=== PATIENT | male | born 1965 | race Caucasian/White ===

== ENCOUNTER 2023-01-13 07:13 | Outpatient (REF) | payer OTHER, SELFPAY ==
[2023-01-13 07:30] LABS: MANUAL DIFF FLAG NO
[2023-01-13 08:58] LABS: Basophils Percent Auto 0.6 % (0-2); Eosinophils Absolute Auto 0.4 X10*3/uL (0.0-0.4); Eosinophils Percent Auto 6.3 % (0-4); Hematocrit 43.3 % (42.0-52.0); Imm Gran Abs Auto 0.04 X10*3/uL (0.00-0.03); Imm Gran Pct Auto 0.6 % (0.0-0.4); Lymphocytes Absolute Auto 1.4 X10*3/uL (1.2-4.9); Lymphocytes Percent Auto 22.7 % (20-40); Mean Corpuscular HGB Conc 34.6 g/dl (31.0-36.0); Mean Corpuscular Hemoglobin 30.1 pg (27.0-33.0); Mean Corpuscular Volume 86.8 fL (80.0-98.0); Mean Platelet Volume 8.8 fL (9.4-12.4); Monocytes Absolute Auto 0.4 X10*3/uL (0.1-1.2); Monocytes Percent Auto 6.6 % (2-11); Neutrophils Percent Auto 63.2 % (45-73); Platelet Count 274 X10*3/uL (160-400); Red Blood Count 4.99 X10*6/uL (4.60-5.80); Red Cell Distribution Width 12.3 % (11.0-16.0); White Blood Count 6.3 X10*3/uL (4.8-10.8)
[2023-01-13 09:44] LABS: Alanine Aminotransferase 16 U/L (0-40); Albumin Level 4.1 g/dL (3.5-5.0); Alkaline Phosphatase 70 U/L (39-117); Anion Gap 11 (12-20); Aspartate Amino Transferase 17 U/L (5-37); Bilirubin Total 0.5 mg/dL (0.0-1.0); Blood Urea Nitrogen 15 mg/dL (9-16); Calcium 9.5 mg/dL (8.4-10.2); Carbon Dioxide 23 mmol/L (22-29); Chloride 111 mmol/L (96-108); Cholesterol 247 mg/dL; Estimated Glomerular Filt Rate > 60; Glucose Fasting 90 mg/dL (60-99); HDL Cholesterol 35 mg/dL; LDL Cholesterol Calculated 176 mg/dl; Potassium 4.4 mmol/L (3.3-5.1); Prostate Specific Antigen 0.98 ng/mL (<0.05-4.0); Sodium 141 mmol/L (135-145); Total Protein 6.7 g/dL (6.5-8.0); Triglycerides 182 mg/dL
== END 2023-01-13 07:14 | disposition home or self-care (01) ==
LOC: HO.LAB 07:13
PROVIDERS: PCP Internal Medicine; Visit Provider Internal Medicine
DX: Z00.00 Encounter for general adult medical examination without abnormal findings (principal); Z12.5 Encounter for screening for malignant neoplasm of prostate; E66.3 Overweight; R63.5 Abnormal weight gain; M19.90 Unspecified osteoarthritis, unspecified site
CPT/HCPCS: 36415; 80053; 80061; 84153; 85025

== ENCOUNTER 2023-03-23 14:49 | Outpatient (REF) | payer OTHER, SELFPAY ==
--- NOTE | ~2023-03-23 | XR_ITS ---
EXAMINATION: XR LUMBOSACRAL SPINE CLINICAL INFORMATION: Back pain. COMPARISON: None available. TECHNIQUE: Three views of the lumbosacral spine. FINDINGS: No evidence of acute compression deformity or subluxation. Moderate intervertebral disc height loss and facet arthropathy at L4-L5 and L5-S1 leading to some degree of neural foraminal encroachment and central canal stenosis. SI joints are symmetric. No significant paraspinal soft tissue abnormality. XR/XR lumbar spine 2-3V IMPRESSION: 1. No acute compression deformity or subluxation. 2. Moderate lumbar spondylosis at L4-L5 and L5-S1. Further evaluation with an MRI of the lumbar spine could be obtained as clinically indicated.
== END 2023-03-23 14:50 | disposition home or self-care (01) ==
LOC: HO.XRAY 14:49
PROVIDERS: PCP Internal Medicine; Visit Provider Internal Medicine
DX: M54.9 Dorsalgia, unspecified (principal); M79.671 Pain in right foot
CPT/HCPCS: 72100

== ENCOUNTER 2023-04-07 06:57 | Outpatient (REF) | payer OTHER, SELFPAY ==
[2023-04-07 08:53] LABS: Alanine Aminotransferase 18 U/L (0-40); Aspartate Amino Transferase 16 U/L (5-37); Cholesterol 179 mg/dL; HDL Cholesterol 40 mg/dL; LDL Cholesterol Calculated 110 mg/dl; Triglycerides 146 mg/dL
== END 2023-04-07 06:58 | disposition home or self-care (01) ==
LOC: HO.LAB 06:57
PROVIDERS: PCP Internal Medicine; Visit Provider Internal Medicine
DX: E78.00 Pure hypercholesterolemia, unspecified (principal)
CPT/HCPCS: 36415; 80061; 82550; 84450; 84460

== ENCOUNTER 2023-06-22 11:29 | Day surgery (SDC) | payer OTHER, SELFPAY ==
--- NOTE | 2023-06-21 10:54 | HO.ANESPROP2 ---
HPI - Anesthesia Eval Consult details Narrative: 58yo M for Colonoscopy PMFSH Past Medical History Medical History Scoliosis Osteoarthritis HLD (hyperlipidemia) Surgical History Surgical History H/O knee surgery H/O colonoscopy Social History Social History Patient Tobacco Use Status: Never used Tobacco Use of substances other than those prescribed or required for medical reasons: No Are you DNR?: No Advance Directives: No Advance Directives Information Provided: Yes Meds Allergies Allergy/AdvReac Type Severity Reaction Status Date / Time No Known Allergies Allergy Unverified 05/20/20 14:44 Home Medications Medication Instructions Recorded Confirmed Last Taken Type atorvastatin 10 mg tablet 10 mg PO DAILY 06/21/23 06/22/23 06/20/23 History celecoxib 200 mg capsule 200 mg PO DAILY 06/21/23 06/22/23 06/17/23 History tramadol 50 mg tablet 50 - 100 mg PO Q6H PRN pain 06/21/23 06/22/23 06/22/23 08:00 History Exam Exam Date and Time: June 21, 2023 105 Assessment and Plan Assessment Anesthesia Assessment: Chart Reviewed
[2023-06-22 11:43] VITALS: BMI 40.7
[2023-06-22] MEDS: Lactated Ringers 1,000 ML 100 ML IVCONT (11:59)
[2023-06-22 12:10] VITALS: BP 109/78; PULSE 72; RESP 16; TEMP 36.3; O2SAT 96
--- NOTE | 2023-06-22 12:42 | MHC.SHP ---
Pre-Procedural Eval Section A Date of Service: 06/22/23 The patient is an INPATIENT: No Changes since office visit: No Cold of Flu in the past 2 weeks, No New Medical Problems, No Changes in Medication and No Patient answered all questions The History & Physical has been completed within 30 days and I have reviewed it.: Yes Section B Chief Complaint: screening Allergies: Allergies Allergy/AdvReac Type Severity Reaction Status Date / Time No Known Allergies Allergy Unverified 05/20/20 14:44 Plan I have reviewed the history and physical and performed a pertinent physical examination on my patient. No changes have occurred unless specified. Time Spent With Patient Time: Total time managing care of this patient today ____ minutes.
--- NOTE | 2023-06-22 13:18 | P.BOP_ITS ---
Brief Operative Note Date of Service: 06/22/23 Pre-op diagnosis: screening Post-op diagnosis: same Procedure: colonoscopy Surgeon: Dell Ervin MD Was an Social Sciences Lecturer used for this Procedure?: No Estimated blood loss (mL): 2 Pathology: other Condition: stable Disposition: PACU
--- NOTE | 2023-06-22 13:22 | P.CONAN_ITS ---
[facility] Past Medical History Medical History Scoliosis Osteoarthritis HLD (hyperlipidemia) Functional capacity: independent ambulation Family History Family history of problems with anesthesia: No Surgical History Surgical History H/O knee surgery H/O colonoscopy History of Problems with Anesthesia: No Social History Social History Patient Tobacco Use Status: Never used Tobacco Use of substances other than those prescribed or required for medical reasons: No Are you DNR?: No Advance Directives: No Advance Directives Information Provided: Yes Meds Allergies Allergy/AdvReac Type Severity Reaction Status Date / Time No Known Allergies Allergy Unverified 05/20/20 14:44 Active Medications: Current Medications Lactated Ringer's (Lr) 1,000 mls @ 100 mls/hr IVCONT .Q10H HEATHER Last Admin: 06/22/23 11:59 Dose: 100 mls/hr Home Medications Medication Instructions Recorded Confirmed Last Taken Type atorvastatin 10 mg tablet 10 mg PO DAILY 06/21/23 06/22/23 06/20/23 History celecoxib 200 mg capsule 200 mg PO DAILY 06/21/23 06/22/23 06/17/23 History tramadol 50 mg tablet 50 - 100 mg PO Q6H PRN pain 06/21/23 06/22/23 06/22/23 08:00 History Exam Exam Date and Time: June 22, 2023 1322 Height,Weight and Vital Signs: Height 5 ft 7 in Weight 117.934 kg Last Vital Signs Temp 97.3 F 06/22/23 12:10 Pulse 72 06/22/23 12:10 Resp 16 06/22/23 12:10 BP 109/78 06/22/23 12:10 Pulse Ox 96 06/22/23 12:10 O2 Del Method Room Air 06/22/23 12:10 Airway Mallampati Class: III TM Dist: >3cm Neck ROM: Full Heart: RRR Lungs: CTA Assessment and Plan Assessment Anesthesia Assessment: Anesthesia Plan Discussed Final Anesthetic Review Family History of Problems with Anesthesia: No History of Problems with Anesthesia: No ASA Class: III Final Preanesthetic Review: Meds/Allgs Chart Reviewed, Consent Obtained/Reviewed and Anes Risks/Benef Reviewed Patient Risk: Low Procedure Risk: Low Anesthetic Plan Anesthetic Plan: MAC: Disposition: Standard PACU
[2023-06-22 13:26] VITALS: BP 117/68; PULSE 67; RESP 16; TEMP 36.1; O2SAT 93
--- NOTE | 2023-06-22 13:28 | HO.POSTANES ---
Post Anesthesia Evaluation Post Anesthesia Evaluation Date of Service: 06/22/23 Vital Signs: Vital Signs Temp Pulse Resp BP Pulse Ox O2 Del Method 06/22/23 13:26 97 F 67 16 117/68 93 Room Air 06/22/23 12:10 97.3 F 72 16 109/78 96 Room Air Anesthesia: Monitored Pain Control: Satisfactory Nausea/Vomiting: None Hydration: Adequate Anesthesia-Related Issues: No Anes. Related Issues
--- NOTE | 2023-06-22 13:36 | OP_ITS ---
DATE OF SERVICE: 06/22/2023 SURGEON: Dell Evrin MD INDICATIONS: Colon cancer screening and family history of colon cancer. PREOPERATIVE DIAGNOSIS: POSTOPERATIVE DIAGNOSIS: PROCEDURE PERFORMED: Colonoscopy to the terminal ileum with biopsy. ESTIMATED BLOOD LOSS: COMPLICATIONS: ANESTHESIA: Monitored anesthesia care. ASSISTANTS: SPECIMENS: DESCRIPTION OF PROCEDURE: A history and physical was performed. The risks and benefits of the procedure were explained to the patient. Informed consent was obtained. The patient was placed in the left lateral decubitus position. A digital rectal exam was performed and was found to be normal. The Olympus pediatric video colonoscope was introduced into the rectum and advanced to the cecum. The cecum was identified by transillumination, palpation, and identification of ileocecal valve. Examination was performed. The scope was removed. He tolerated the procedure well and was returned to the recovery area in stable condition. FINDINGS: The terminal ileum was examined and appeared normal. The visualized colonic mucosa was normal. The quality of the prep was good. Two polyps were identified and removed with a biopsy forceps, both measured less than 5 mm, and were located in the cecum, and at 55 cm. No other polyps were identified. Retroflexed examination showed moderate-sized internal hemorrhoids. The quality of the prep was good. IMPRESSION: Colon polyps. RECOMMENDATION: Follow up the biopsy results. MD ДМИТРИЙ Mcknight/SALMA / [id number]
[2023-06-22 13:41] VITALS: BP 134/85; PULSE 69; RESP 18; TEMP 36.2; O2SAT 95
== END 2023-06-22 14:13 | disposition home or self-care (01) ==
PROVIDERS: PCP Internal Medicine; Visit Provider Internal Medicine Gastroenterology
PROC: 0DJD8ZZ Inspection of Lower Intestinal Tract, Via Natural or Artificial Opening Endoscopic (ICD-10-PCS; CPT 45378; principal; 2023-06-22 12:30)
DX: Z12.11 Encounter for screening for malignant neoplasm of colon (principal); Z80.0 Family history of malignant neoplasm of digestive organs; D12.0 Benign neoplasm of cecum; K63.5 Polyp of colon; K64.8 Other hemorrhoids; E78.5 Hyperlipidemia, unspecified; M19.90 Unspecified osteoarthritis, unspecified site; M41.9 Scoliosis, unspecified; Z79.899 Other long term (current) drug therapy; Z79.1 Long term (current) use of non-steroidal anti-inflammatories (NSAID); Z98.890 Other specified postprocedural states
CPT/HCPCS: 45380; 88305

== ENCOUNTER 2023-12-14 12:18 | Outpatient (REF) | payer OTHER, SELFPAY ==
--- NOTE | ~2023-12-14 | XR_ITS ---
EXAMINATION: XR CHEST CLINICAL INFORMATION: Right shoulder and chest wall pain COMPARISON: None available. TECHNIQUE: 2 views of the chest were obtained. FINDINGS: No significant abnormality is noted involving the heart, lungs, mediastinum, bony thorax or soft tissues. XR/XR chest 2V IMPRESSION: Unremarkable examination.
[2023-12-14 12:37] LABS: MANUAL DIFF FLAG NO
[2023-12-14 12:50] LABS: Basophils Absolute Auto 0.1 X10*3/uL (0.0-0.2); Basophils Percent Auto 0.8 % (0-2); Eosinophils Absolute Auto 0.6 X10*3/uL (0.0-0.4); Eosinophils Percent Auto 7.6 % (0-4); Hematocrit 42.2 % (42.0-52.0); Hemoglobin 14.8 g/dl (14.0-18.0); Imm Gran Abs Auto 0.05 X10*3/uL (0.00-0.03); Imm Gran Pct Auto 0.7 % (0.0-0.4); Lymphocytes Absolute Auto 1.3 X10*3/uL (1.2-4.9); Lymphocytes Percent Auto 17.7 % (20-40); Mean Corpuscular HGB Conc 35.1 g/dl (31.0-36.0); Mean Corpuscular Hemoglobin 29.6 pg (27.0-33.0); Mean Corpuscular Volume 84.4 fL (80.0-98.0); Mean Platelet Volume 8.2 fL (9.4-12.4); Monocytes Absolute Auto 0.5 X10*3/uL (0.1-1.2); Monocytes Percent Auto 6.5 % (2-11); Neutrophils Absolute Auto 4.8 x10*3/uL (2.0-8.3); Neutrophils Percent Auto 66.7 % (45-73); Platelet Count 285 X10*3/uL (160-400); Red Cell Distribution Width 12.6 % (11.0-16.0); White Blood Count 7.2 X10*3/uL (4.8-10.8)
[2023-12-14 13:05] LABS: D Dimer High Sensitivity 368 NG/ML
[2023-12-14 13:38] LABS: Alanine Aminotransferase 14 U/L (0-40); Albumin Level 4.3 g/dL (3.5-5.0); Alkaline Phosphatase 87 U/L (39-117); Anion Gap 13 (12-20); Aspartate Amino Transferase 13 U/L (5-37); Bilirubin Total 0.6 mg/dL (0.0-1.0); Blood Urea Nitrogen 10 mg/dL (9-16); C Reactive Protein 0.51 mg/dL (< or = 0.50); Calcium 9.6 mg/dL (8.4-10.2); Carbon Dioxide 25 mmol/L (22-29); Chloride 106 mmol/L (96-108); Estimated Glomerular Filt Rate > 60; Glucose Random 98 mg/dL (60-115); Potassium 4.2 mmol/L (3.3-5.1); Sodium 140 mmol/L (135-145); Total Protein 7.5 g/dL (6.5-8.0)
== END 2023-12-14 12:19 | disposition home or self-care (01) ==
LOC: HO.LAB 12:18
PROVIDERS: PCP Internal Medicine; Visit Provider Internal Medicine
DX: R07.9 Chest pain, unspecified (principal); M25.511 Pain in right shoulder
CPT/HCPCS: 36415; 71046; 80053; 82550; 85025; 85379; 86140

== ENCOUNTER 2023-12-15 17:57 | Emergency (ER) | payer OTHER, SELFPAY ==
--- NOTE | ~2023-12-15 | CT_ITS ---
EXAMINATION: CT ANGIOGRAM OF THE CHEST WITH AND WITHOUT CONTRAST (CT PULMONARY ANGIOGRAM FOR PE) CLINICAL INFORMATION: Reason for Exam elevated d-dimer rule out PE COMPARISON: Chest x-ray December 14, 2023 TECHNIQUE: Prior to contrast administration, noncontrast localization images were obtained. Subsequently, multidetector volumetric imaging was performed from the thoracic inlet to below the diaphragms following the administration of 65 mL Omnipaque 350 intravenous contrast. No contrast reaction reported Sagittal, coronal, and MIP oblique sagittal reformatted images were obtained on the CT workstation, uploaded to PACS, and reviewed. This CT examination was performed using dose optimization techniques as appropriate, variously including the following: *Automated exposure control *Adjustment of mA and/or kV according to patient size (this includes techniques or standardized protocols for targeted exams where dose is matched to indication/reason for exam; i.e. extremities or head) *Use of iterative reconstruction technique Total exam dose-length product 457 mGy-cm FINDINGS: QUALITY OF STUDY/CONTRAST BOLUS: Satisfactory. PULMONARY ARTERIES: No pulmonary emboli. THORACIC AORTA: No aneurysm. LUNG: No focal consolidation, nodules or masses. PLEURA: No pleural effusion or pneumothorax. MEDIASTINUM: Normal heart size. No pericardial effusion. No hilar or mediastinal lymphadenopathy. No evidence of septal bowing or right heart strain. CORONARY ARTERY CALCIFICATION: None visualized on this study. CHEST WALL/AXILLA: No axillary or internal mammary lymphadenopathy. OSSEOUS STRUCTURES: No acute or suspicious osseous abnormality. UPPER ABDOMEN: Unremarkable. No reflux of contrast into the hepatic veins to suggest elevated right heart pressures. CT/CT angio chest PE protocol IMPRESSION: Normal CT of chest. No evidence of pulmonary embolism. VTE: negative.
[2023-12-15 18:44] VITALS: BP 137/95; PULSE 90; RESP 16; TEMP 36.6; O2SAT 96; BMI 38.4
[2023-12-15 19:12] LABS: MANUAL DIFF FLAG NO
[2023-12-15 19:14] LABS: Basophils Absolute Auto 0.1 X10*3/uL (0.0-0.2); Basophils Percent Auto 0.6 % (0-2); Eosinophils Absolute Auto 0.2 X10*3/uL (0.0-0.4); Eosinophils Percent Auto 2.7 % (0-4); Hematocrit 40.6 % (42.0-52.0); Hemoglobin 14.2 g/dl (14.0-18.0); Imm Gran Abs Auto 0.02 X10*3/uL (0.00-0.03); Imm Gran Pct Auto 0.2 % (0.0-0.4); Lymphocytes Absolute Auto 1.8 X10*3/uL (1.2-4.9); Lymphocytes Percent Auto 22.3 % (20-40); Mean Corpuscular Hemoglobin 29.3 pg (27.0-33.0); Mean Corpuscular Volume 83.9 fL (80.0-98.0); Mean Platelet Volume 7.9 fL (9.4-12.4); Monocytes Absolute Auto 0.6 X10*3/uL (0.1-1.2); Monocytes Percent Auto 7.5 % (2-11); Neutrophils Absolute Auto 5.5 x10*3/uL (2.0-8.3); Neutrophils Percent Auto 66.7 % (45-73); Platelet Count 282 X10*3/uL (160-400); Red Blood Count 4.84 X10*6/uL (4.60-5.80); Red Cell Distribution Width 12.6 % (11.0-16.0); White Blood Count 8.3 X10*3/uL (4.8-10.8)
[2023-12-15 19:21] LABS: D Dimer High Sensitivity 362 NG/ML
[2023-12-15 19:38] LABS: Alanine Aminotransferase 15 U/L (0-40); Albumin Level 4.4 g/dL (3.5-5.0); Alkaline Phosphatase 89 U/L (39-117); Anion Gap 15 (12-20); Aspartate Amino Transferase 16 U/L (5-37); Bilirubin Direct 0.2 mg/dL (0.0-0.5); Bilirubin Total 0.5 mg/dL (0.0-1.0); Blood Urea Nitrogen 13 mg/dL (9-16); Calcium 9.9 mg/dL (8.4-10.2); Carbon Dioxide 26 mmol/L (22-29); Chloride 107 mmol/L (96-108); Creatinine Clr Calc Pharmacy 119.9; Estimated Glomerular Filt Rate > 60; Glucose Random 113 mg/dL (60-115); Potassium 3.7 mmol/L (3.3-5.1); Sodium 144 mmol/L (135-145); Total Protein 7.6 g/dL (6.5-8.0)
[2023-12-15 20:44] VITALS: BP 139/79; PULSE 71; RESP 18; TEMP 36.6; O2SAT 93
--- NOTE | 2023-12-15 20:46 | PC.NURSE ---
Pt ca&ox4, no signs of distress. Pt denies pain. Per pt sent to ED by pcp d/t elevated DDimer. Per pt had knee replacement on 07/09/23 and has since been having intermittent upper body pain. Plan of care ongoing.
--- NOTE | 2023-12-15 20:49 | PC.NURSE ---
at bedside. Pt changed into hospital attire. Vitals stable. Plan of care ongoing.
--- NOTE | 2023-12-15 22:23 | ECG_ITS ---
Test Reason : pain Blood Pressure : / mmHG Vent. Rate : 064 BPM Atrial Rate : 064 BPM P-R Int : 216 ms QRS Dur : 094 ms QT Int : 408 ms P-R-T Axes : 013 031 022 degrees QTc Int : 420 ms Sinus rhythm with 1st degree A-V block Otherwise normal ECG No previous ECGs available Referred By: Nadja Miramontes Electronically Signed By:Peter Wilcox
[2023-12-15 22:49] LABS: Troponin-I High Sensitivity 8.1 ng/L (<3.5-35.0)
[2023-12-15 22:50] LABS: B Type Natriuretic Peptide 10 pg/mL (<100)
--- NOTE | 2023-12-15 23:23 | PC.NURSE ---
IV access obtained. CT advised. Plan of care ongoing.
[2023-12-15] MEDS: iohexoL 350 MG/ML 100 ML INFUS..BTL 65 ML IV (23:41)
--- NOTE | 2023-12-16 00:03 | ED.RECABL ---
HPI - Recheck/Abnormal Lab/Rx General Chief Complaint: Recheck/Abnormal Lab/Rx Stated Complaint: elevated d-dimer levels, ref by PCP, clot? Time Seen by Provider: 12/15/23 22:03 Source: patient, family and old records reviewed Mode of arrival: ambulatory Limitations: no limitations History of Present Illness HPI narrative: 58 yo male with PMH of arthritis, HLD here with c/o seeing his doctor this week for R sided shoulder pain and pain in the sternoclavicular joint his doctor sent off an array of labs and sent off ddimer. The patient has no hx of blood clots and he denies risk factors for blood clots. He and his partner were called to come to the ED for further testing. He denies CP/dyspnea. MD complaint: abnormal lab Initial visit (ago): day(s) (1) Initial visit for: other (R SC joint pain) Returns today for: called because of abnormal lab/test Description of abnormal result: elevated ddimer Symptoms since prior visit: no new symptoms Context: called for abnormal lab result Associated symptoms: none Related Data Home Medications ?Medication ?Instructions ?Recorded ?Confirmed atorvastatin 10 mg tablet 10 mg PO DAILY 06/21/23 06/22/23 celecoxib 200 mg capsule 200 mg PO DAILY 06/21/23 06/22/23 tramadol 50 mg tablet 50 - 100 mg PO Q6H PRN pain 06/21/23 06/22/23 Allergies Allergy/AdvReac Type Severity Reaction Status Date / Time No Known Allergies Allergy Verified 12/15/23 18:47 Review of Systems Review of Systems: Constitutional : No Fever, No Chills ENT/Mouth : No Ear Pain, No Hoarseness, No sore throat Eyes: No Eye Pain, No Swelling, No Redness, No Foreign Body Cardiovascular : No Chest Pain, No SOB Respiratory : No Cough, No Dyspnea Gastrointestinal : No Nausea, No Vomiting, No Diarrhea, No abdominal Pain Genitourinary : No Dysuria, No Hematuria Musculoskeletal : positive joint pain, No Myalgias, No Joint Swelling Skin : No Skin lacerations, No rash Neuro : No Weakness, No Numbness, No Loss of Consciousness, No Dizziness, No Headache Psych : No Anxiety/Panic, No Depression Heme/Lymph: no easy bruising, no Lymphadenopathy Endocrine : No Polyuria, No Polydipsia All other systems reviewed and are negative [facility], [facility] Past Medical History Attestation statement: The following information was validated with the patient. Source: old records reviewed Medical History Scoliosis Osteoarthritis HLD (hyperlipidemia) Surgical History H/O knee surgery H/O colonoscopy Social History Social History Patient Tobacco Use Status: Never used Tobacco Smoked in Last 30 Days: No Use of substances other than those prescribed or required for medical reasons: No Advance Directives: No Advance Directives Information Provided: No Physical Exam Vital Signs: Vital Signs: Last Vital Signs Temp 97.8 F 12/15/23 20:44 Pulse 71 12/15/23 20:44 Resp 18 12/15/23 20:44 BP 139/79 12/15/23 20:44 Pulse Ox 93 12/15/23 20:44 O2 Del Method Room Air 12/15/23 20:44 BMI result Body Mass Index 38.4 Appearance: Alert. Oriented X3. No acute distress. Eyes: Pupils equal, round and reactive to light. ENT: Pharynx normal. Neck: Normal inspection. Neck supple. CVS: Normal heart rate and rhythm. Pulses normal. Chest: slight swelling noted at R sternoclavicular joint but no redness, rash, warmth and distal NV intact Respiratory: No respiratory distress. Breath sounds normal. Abdomen: Soft and nontender. Skin: Skin warm and dry. Normal skin color. Normal skin turgor. Extremities: No lower extremity edema. No calf ttp Neuro: Oriented X 3. No motor deficit. No sensory deficit. Course Course Course Narrative: signed out to Dr. Mendoza pending CTA Medications Administered Discontinued Medications Generic Name Dose Route Start Last Admin Trade Name Freq PRN Reason Stop Dose Admin Iohexol 65 ml 12/15/23 23:41 12/15/23 23:41 Iohexol 350 Mg/Ml 100 Ml Infus..Btl IV 12/15/23 23:42 65 ml ONCE ONE Administration Medical Decision Making Medical Decision Making MDM Narrative: 58 yo male with PMH of arthritis, HLD here with c/o R sternoclavicular pain and mild joint swelling no signs of infection he is not IVDA no systemic symptoms doubt infection at this time he was referred to ED for elevated ddimer without any symptoms clinically and told to get CTA. He is low risk but test is elevated. At this time imaging ordered. EKG. Overall not toxic appearing. Will refer back to PCP for further SC joint workup. Differential Diagnosis Differential Diagnoses: The differential diagnosis associated with the presentation includes arthralgia, unprovoked VTE, ddimer elevated at baseline Admission/Observation Consideration of admission/observation: Escalation of care including admission/observation considered Lab Data [facility] Lab Attestation statement: I reviewed the patient's lab results. 12/15/23 19:08 12/15/23 19:08 Labs: Lab Results 12/15/23 Range/Units 19:08 WBC 8.3 (4.8-10.8) X10*3/uL RBC 4.84 (4.60-5.80) X10*6/uL Hgb 14.2 (14.0-18.0) g/dl Hct 40.6 L (42.0-52.0) % MCV 83.9 (80.0-98.0) fL MCH 29.3 (27.0-33.0) pg MCHC 35.0 (31.0-36.0) g/dl RDW 12.6 (11.0-16.0) % Plt Count 282 (160-400) X10*3/uL MPV 7.9 L (9.4-12.4) fL Immature Gran % (Auto) 0.2 (0.0-0.4) % Neut % (Auto) 66.7 (45-73) % Lymph % (Auto) 22.3 (20-40) % [place] % (Auto) 7.5 (2-11) % Eos % (Auto) 2.7 (0-4) % Baso % (Auto) 0.6 (0-2) % Lymph # (Auto) 1.8 (1.2-4.9) X10*3/uL [place] # (Auto) 0.6 (0.1-1.2) X10*3/uL Eos # (Auto) 0.2 (0.0-0.4) X10*3/uL Baso # (Auto) 0.1 (0.0-0.2) X10*3/uL Abs Immat Gran (auto) 0.02 (0.00-0.03) X10*3/uL Absolute Neuts (auto) 5.5 (2.0-8.3) x10*3/uL Absolute Nucleated RBC 0.000 (0.0-0.012) X10*3/uL Nucleated RBC % (auto) 0.0 (0.0-0.2) /100WBC D-Dimer High Sensitivty 362 NG/ML Sodium 144 (135-145) mmol/L Potassium 3.7 (3.3-5.1) mmol/L Chloride 107 (96-108) mmol/L Carbon Dioxide 26 (22-29) mmol/L Anion Gap 15 (12-20) BUN 13 (9-16) mg/dL Creatinine 0.83 (0.5-1.4) mg/dL Estim Creat Clear Calc 119.9 Estimated GFR > 60 Random Glucose 113 (60-115) mg/dL Calcium 9.9 (8.4-10.2) mg/dL Total Bilirubin 0.5 (0.0-1.0) mg/dL Direct Bilirubin 0.2 (0.0-0.5) mg/dL AST 16 (5-37) U/L ALT 15 (0-40) U/L Alkaline Phosphatase 89 (39-117) U/L Troponin I High Sens 8.1 (<3.5-35.0) ng/L B-Natriuretic Peptide 10 (<100) pg/mL Total Protein 7.6 (6.5-8.0) g/dL Albumin 4.4 (3.5-5.0) g/dL Independent Interpretation I performed an independent interpretation of an: EKG and CT Scan (no saddle noted) Interpretation: Rate: 64 Rhythm: NSR with 1st degree AVB [place]: normal Normal P waves. Normal NATE. Normal QRS complex. ST T wave : normal no LETICIA qTC: 420 prior studies: no acute ischemia The study has been interpreted contemporaneously by me. . Radiology Impression Discussion of test interpretation with radiology: I have reviewed the radiologist's reading. Independent Historian Clinical information obtained from an independent historian. History obtained from or confirmed by: Spouse External Record Review External record reviewed: Office record and Prior outpatient labs Discharge Plan Discharge Clinical Impression: D-dimer, elevated, Arthritis of sternoclavicular joint Patient Disposition: Still a Patient Instructions: Arthralgia (ED) Additional Instructions: ddimer is a nonspecific test can be elevated for many reasons that do no have anything to do with clots. follow up with your doctor in regards to swelling and pain in the sternoclavicular joint these can be nonspecific inflammation and can get better or you may need MRI. return for any worsening symptoms or concerns. Prescriptions: No Action celecoxib 200 mg capsule 200 mg PO DAILY atorvastatin 10 mg tablet 10 mg PO DAILY tramadol 50 mg tablet 50 - 100 mg PO Q6H PRN (Reason: pain) Print Language: Marshallese
[2023-12-16 01:07] VITALS: BP 137/87; PULSE 66; RESP 19; TEMP 36.6; O2SAT 97
== END 2023-12-16 01:09 | disposition home or self-care (01) ==
PROVIDERS: Emergency Medicine; Physician Assistant Medical; Emergency Provider Internal Medicine; PCP Internal Medicine
DX: M19.011 Primary osteoarthritis, right shoulder (principal); I44.0 Atrioventricular block, first degree; M25.511 Pain in right shoulder; R79.89 Other specified abnormal findings of blood chemistry; R07.89 Other chest pain; R06.02 Shortness of breath; Z79.899 Other long term (current) drug therapy
CPT/HCPCS: 36415; 71275; 80048; 80076; 83880; 84484; 85025; 85379; 93005; 99284; Q9967

== ENCOUNTER → 2023-12-15 22:23 | Outpatient (BNV) | payer OTHER, SELFPAY | PROVIDERS: Emergency Provider Internal Medicine; PCP Internal Medicine; Visit Provider Internal Medicine Cardiovascular Disease | DX: R52 Pain, unspecified (principal) | CPT/HCPCS: 93010 ==

== ENCOUNTER → 2024-01-11 14:37 | Outpatient (REF) | payer OTHER, SELFPAY ==
--- NOTE | 2024-01-11 14:40 | CA_ITS ---
Transthoracic Echocardiogram Patient (Last, First, Middle): Eric Wynn W Gender: Male Date of : 1965 Age: 58 Procedure Date: 01/11/2024 Procedure Type: Transthoracic Echocardiogram Location: OP Height: 170. cm Weight: 122.47 kg BSA: 2.30 m2 Heart Rate: 69 bpm BP: 130 / 80 mmHg Parts Coordinator: RAMSES Referring MD: Alvarado Echevarria MD Symptoms: MURMUR, ? as Study Quality: Fair ECG Rhythm: Sinus Conclusions: - Normal left ventricular size and systolic function. There is mildly increased left ventricular wall thickness. The visually estimated ejection fraction is between 65-70%. - E/E prime ratio is between 8 and 15 consistent with indeterminate filling pressures. - Normal right ventricular cavity size and systolic function. - There is mild to moderate aortic valve stenosis. - There is mild pulmonic stenosis. Findings Left Ventricle Normal left ventricular size and systolic function. There is mildly increased left ventricular wall thickness. The visually estimated ejection fraction is between 65-70%. There is no evidence of regional wall motion abnormalities. Abnormal diastolic function is noted. Spectral Doppler is indicative of an impaired relaxation filling pattern. E/E prime ratio is between 8 and 15 consistent with indeterminate filling pressures. Right Ventricle Normal right ventricular cavity size and systolic function. Atria The left atrium is mildly dilated. The right atrium is normal in size. Aortic Valve There is a normal trileaflet aortic valve. There is mild calcification of the aortic valve. There is mild to moderate aortic valve stenosis. The peak aortic velocity is 2.87 m/s. The mean gradient is 19 mmHg. The aortic valve area is 1.68 cm2. There is trace (trivial) aortic valve regurgitation. Mitral Valve Normal mitral valve structure and function. There is no mitral valve regurgitation. There is no mitral valve stenosis. Pulmonic Valve The pulmonic valve was not well visualized. There is mild stenosis. Tricuspid Valve Normal tricuspid valve structure and function. There is no tricuspid valve regurgitation. Normal right atrial pressure. There is no evidence of pulmonary hypertension. Great Vessels There is mild dilatation of the ascending aorta measuring 3.60 cm. Venous The inferior vena cava is normal in size and collapses greater than 50% with inspiration. Pericardium/Pleural There is no evidence of pericardial effusion. Prior Study Comparison Changes noted compared to prior study dated: 03/20/2018. mild to moderate , mild PS. Measurements 2D Linear Measurements IVSd: 1.21 0.6-0.9/0.6-1.0 cm LVIDd: 5.06 3.9-5.3/4.2-5.9 cm LVIDd Index: 2.20 2.4-3.2/2.2-3.1 cm/m2 LVIDs: 2.54 2.0-3.6 cm LVPWd: 1.13 0.7-1.1 cm LA Diam: 4.70 2.7-3.8/3.0-4.0 cm LAIDs Index: 2.04 1.5-2.3 cm/m2 LV Mass: 286.70 67-162/88-224 g LV Mass Index: 124.65 43-95/49-115 g/m2 LVOT Diam: 2.20 3.0+(-)1.3 cm 2D Systolic Function EF 4C: 55.60 >55% EF 2C: 66.50 >55% EF BiP: 60.40 >55% Mitral Valve MV Pk E: 1.00 MV PK A: 1.12 MV Decel Time: 185.00 E/A: 0.90 E'Lateral: 8.16 E'Medial: 7.29 E/E' Med: 13.60 E/E' Lat: 12.20 PHT: 54.00 MVA PHT: 4.07 Decel [place]: 5.39 Aortic Valve AoV Pk Steve: 2.87 AoV Mn Steve: 2.03 AoV VTI: 0.64 AoV Pk Grad: 33.00 Aov Mn Grad: 19.00 BRIAN Cont.VTI: 1.68 LVOT LVOT Pk Steve: 1.26 LVOT Mn Steve: 0.97 LVOT VTI: 0.28 LVOT Pk Grad: 6.00 LVOT Mn Grad: 4.00 LVOT Diam: 2.20 LVOT Area: 3.80 Diastolic Function MV Pk E: 1.00 MV Pk A: 1.12 E/A: 0.90 E'Medial: 7.29 E/E' Med: 13.60 E' Laterial: 8.16 E/E' Lat: 12.20 Right Ventricle TAPSE (mm): 24.40 TVS' Steve: 15.10 Tricuspid Valve TR Pk Steve: 1.74 TR Pk Grad: 12.00 RA Press: 3.00 RVSP: 15.00 Great Vessels Aorta Sinus of Valsalva: 3.10 2.0-3.5 cm Ao Asc: 3.60 2.1-3.4 cm Pulmonary Valve PV Pk Steve: 2.01 PV Min Steve: 1.13 Peak PV Grad: 16.00 PV Mn Grad: 7.00 Updated in Other Vendor System with Status of Final Peter Wilcox MD electronically signed on 01/13/2024 3:00:02 PM with status of Final
== END ==
LOC: HO.CARD 14:37
PROVIDERS: PCP Internal Medicine; Visit Provider Internal Medicine
DX: Z86.79 Personal history of other diseases of the circulatory system (principal)
CPT/HCPCS: 93306

== ENCOUNTER → 2024-01-11 14:40 | Outpatient (BNV) | payer OTHER, SELFPAY | PROVIDERS: PCP Internal Medicine; Visit Provider Internal Medicine Cardiovascular Disease | DX: R01.1 Cardiac murmur, unspecified (principal); I35.2 Nonrheumatic aortic (valve) stenosis with insufficiency | CPT/HCPCS: 93306 ==

== ENCOUNTER 2024-06-25 16:48 | Outpatient (REF) | payer OTHER, SELFPAY ==
[2024-06-25 17:03] LABS: MANUAL DIFF FLAG NO
[2024-06-25 17:06] LABS: Basophils Percent Auto 0.6 % (0-2); Eosinophils Absolute Auto 0.3 X10*3/uL (0.0-0.4); Eosinophils Percent Auto 5.3 % (0-4); Hematocrit 38.9 % (42.0-52.0); Hemoglobin 13.2 g/dl (14.0-18.0); Imm Gran Abs Auto 0.03 X10*3/uL (0.00-0.03); Imm Gran Pct Auto 0.5 % (0.0-0.4); Lymphocytes Absolute Auto 1.2 X10*3/uL (1.2-4.9); Lymphocytes Percent Auto 19.1 % (20-40); Mean Corpuscular HGB Conc 33.9 g/dl (31.0-36.0); Mean Corpuscular Hemoglobin 28.1 pg (27.0-33.0); Mean Corpuscular Volume 82.9 fL (80.0-98.0); Monocytes Absolute Auto 0.5 X10*3/uL (0.1-1.2); Monocytes Percent Auto 8.3 % (2-11); Neutrophils Absolute Auto 4.1 x10*3/uL (2.0-8.3); Neutrophils Percent Auto 66.2 % (45-73); Platelet Count 327 X10*3/uL (160-400); Red Blood Count 4.69 X10*6/uL (4.60-5.80); Red Cell Distribution Width 13.3 % (11.0-16.0); White Blood Count 6.2 X10*3/uL (4.8-10.8)
[2024-06-25 17:38] LABS: Alanine Aminotransferase 24 U/L (0-40); Albumin Level 4.1 g/dL (3.5-5.0); Alkaline Phosphatase 94 U/L (39-117); Anion Gap 11 (12-20); Aspartate Amino Transferase 21 U/L (5-37); Bilirubin Total 0.3 mg/dL (0.0-1.0); Blood Urea Nitrogen 16 mg/dL (9-16); C Reactive Protein 2.47 mg/dL (< or = 0.50); Calcium 9.4 mg/dL (8.4-10.2); Carbon Dioxide 25 mmol/L (22-29); Chloride 108 mmol/L (96-108); Estimated Glomerular Filt Rate > 60; Glucose Random 110 mg/dL (60-115); Potassium 4.3 mmol/L (3.3-5.1); Rheumatoid Factor < 13.0 IU/mL (<15.0); Sodium 140 mmol/L (135-145); Total Protein 7.3 g/dL (6.5-8.0); Uric Acid 4.9 mg/dL (3.4-7.0)
[2024-06-25 17:44] LABS: Erythrocyte Sedimentation Rate 37 MM/HR (0-15)
[2024-06-25 17:52] LABS: Free T4 (Free Thyroxine) 0.92 ng/dL (0.71-1.85); Thyroid Stimulating Hormone 1.69 uIU/mL (0.32-4.0)
[2024-06-25 17:58] LABS: Vitamin B12 228 pg/mL (200-900)
[2024-06-27 14:04] LABS: Anti Nuclear Antibody Screen NEGATIVE (NEGATIVE)
== END 2024-06-25 16:49 | disposition home or self-care (01) ==
LOC: HO.LAB 16:48
PROVIDERS: PCP Internal Medicine; Visit Provider Internal Medicine
DX: M25.50 Pain in unspecified joint (principal)
CPT/HCPCS: 36415; 80053; 82607; 84439; 84443; 84550; 85025; 85652; 86038; 86140; 86431

== ENCOUNTER 2024-07-30 10:39 | Outpatient (REF) | payer OTHER, SELFPAY ==
[2024-07-30 11:05] LABS: MANUAL DIFF FLAG NO
[2024-07-30 11:44] LABS: Basophils Percent Auto 0.6 % (0-2); Eosinophils Absolute Auto 0.3 X10*3/uL (0.0-0.4); Eosinophils Percent Auto 4.9 % (0-4); Hematocrit 41.2 % (42.0-52.0); Hemoglobin 13.7 g/dl (14.0-18.0); Imm Gran Abs Auto 0.04 X10*3/uL (0.00-0.03); Imm Gran Pct Auto 0.6 % (0.0-0.4); Lymphocytes Absolute Auto 1.2 X10*3/uL (1.2-4.9); Lymphocytes Percent Auto 17.6 % (20-40); Mean Corpuscular HGB Conc 33.3 g/dl (31.0-36.0); Mean Corpuscular Hemoglobin 28.5 pg (27.0-33.0); Mean Corpuscular Volume 85.7 fL (80.0-98.0); Mean Platelet Volume 8.1 fL (9.4-12.4); Monocytes Absolute Auto 0.7 X10*3/uL (0.1-1.2); Neutrophils Absolute Auto 4.3 x10*3/uL (2.0-8.3); Neutrophils Percent Auto 66.3 % (45-73); Platelet Count 340 X10*3/uL (160-400); Red Blood Count 4.81 X10*6/uL (4.60-5.80); Red Cell Distribution Width 12.7 % (11.0-16.0); White Blood Count 6.5 X10*3/uL (4.8-10.8)
[2024-07-30 12:18] LABS: Parathyroid Hormone Intact 80.9 pg/mL (8.7-77.1)
[2024-07-30 12:22] LABS: Alanine Aminotransferase 19 U/L (0-40); Albumin Level 3.9 g/dL (3.5-5.0); Alkaline Phosphatase 98 U/L (39-117); Anion Gap 13 (12-20); Aspartate Amino Transferase 19 U/L (5-37); Bilirubin Total 0.4 mg/dL (0.0-1.0); Blood Urea Nitrogen 9 mg/dL (9-16); C Reactive Protein 3.42 mg/dL (< or = 0.50); Calcium 9.5 mg/dL (8.4-10.2); Carbon Dioxide 27 mmol/L (22-29); Chloride 103 mmol/L (96-108); Estimated Glomerular Filt Rate > 60; Glucose Random 89 mg/dL (60-115); Potassium 4.2 mmol/L (3.3-5.1); Sodium 139 mmol/L (135-145); Total Protein 7.1 g/dL (6.5-8.0)
[2024-07-30 12:25] LABS: Erythrocyte Sedimentation Rate 34 MM/HR (0-15)
[2024-07-30 12:40] LABS: Thyroid Stimulating Hormone 1.48 uIU/mL (0.32-4.0)
[2024-08-01 13:48] LABS: Anti Nuclear Antibody Screen NEGATIVE (NEGATIVE)
[2024-08-01 18:43] LABS: Lyme Abs Screen <0.90 index
== END 2024-07-30 10:40 | disposition home or self-care (01) ==
LOC: HO.LAB 10:39
PROVIDERS: PCP Internal Medicine; Visit Provider Internal Medicine
DX: M54.50 Low back pain, unspecified (principal); T14.8XXA Other injury of unspecified body region, initial encounter; W57.XXXA Bitten or stung by nonvenomous insect and other nonvenomous arthropods, initial encounter
CPT/HCPCS: 36415; 80053; 83970; 84443; 85025; 85652; 86038; 86140; 86617; 86618

== ENCOUNTER 2025-01-21 13:06 | Outpatient (AMB) | payer OTHER, SELFPAY ==
--- NOTE | 2025-01-13 15:38 | A.OFFPC_ITS ---
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: No Accompanied by: Self / Same As Patient Allergies No Known Allergies Allergy (Verified 12/15/23 18:47) Tobacco use date assessed: 01/14/25 Dental Screening Dental Screen Date: 01/14/25 Did you have a dental visit in the last 12 months?: Yes Did you have a dental problem in the last 6 months where you did not have access to dental care?: No PFSH Medical History Scoliosis Osteoarthritis HLD (hyperlipidemia) Surgical History H/O knee surgery H/O colonoscopy Social History Patient Tobacco Use Status: Never used Tobacco Questionnaire PHQ-9 Over the last 2 weeks, how often have you been bothered by any of the following problems? 1. Little interest or pleasure in doing things: not at all 2. Feeling down, depressed, or hopeless: not at all 3. Trouble falling or staying asleep, or sleeping too much: not at all 4. Feeling tired or having little energy: not at all 5. Poor appetite or overeating: not at all 6. Feeling bad about yourself - or that you are a failure or have let yourself or your family down: not at all 7. Trouble concentrating on things, such as reading the newspaper or watching television: not at all 8. Moving or speaking so slowly that other people could have noticed. Or the opposite - being so fidgety or restless that you have been moving around a lot more than usual: not at all 9. Thoughts that you would be better off or of hurting yourself in some way: not at all Total score: 0 Source: Developed by Drs. Norberto Ivy, Chantel Saldivar, Mack Colón and colleagues, with an educational surinder from [employer]. Thrive Questionnaire Date Thrive assessed: 01/14/25 I am a: Patient Within the past 12 months, did the food you bought not last and you didn't have the money to get more?: Never true Within the past 12 months, did you worry whether your food would run out before you got money to buy more?: Never true Do you have trouble paying for medicines?: No Do you have trouble getting transportation to medical appointments?: No Do you have trouble paying your heating and electricity bill?: No Do you have trouble taking care of your child, family member or friend?: No Do you have trouble with day-to-day activities such as bathing, preparing meals, shopping, managing finances, etc.?: No Are you currently unemployed and looking for a job?: No Are you interested in more education?: No THRIVE Score: 0 AUDIT C Alcohol Use Questionnaire (AUDIT-C) 1. How often do you have a drink containing alcohol?: Never 3. How often do you have six or more drinks on one occasion?: Never Total Score: 0 BERNICE-7 AMB Questionnaire BERNICE-7 Date BERNICE - 7 assessed: 01/14/25 Feeling nervous, anxious, or on edge: 0 = Not at all Not being able to stop or control worryin = Not at all Worrying too much about different things: 0 = Not at all Trouble relaxin = Not at all Being so restless that it is hard to sit still: 0 = Not at all Becoming easily annoyed or irritable: 0 = Not at all Feeling afraid as if something awful might happen: 0 = Not at all Total BERNICE-7 score (0-4 normal; 5-9 mild; 10-14 moderate; 15-21 severe): 0 Source: Developed by Drs. Norberto Ivy, Chantel Saldivar, Mack Colón and colleagues, with an educational surinder from [employer]. Physical exam (Primary Care) Tobacco/Smoking Status: Tobacco use Status Patient Tobacco Use Status Never used Tobacco 12/15/23 20:45 Coding
--- NOTE | 2025-01-21 13:11 | MHC.PC.OV ---
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 He would like a script for weight loss. History of inflammatory arthritis, on tapering prednisone. Sees the MD at the arthritis center. Has not been taking his statins. Would like fasting bw done [facility] Medical History Aortic stenosis Scoliosis Osteoarthritis HLD (hyperlipidemia) Surgical History H/O knee surgery H/O colonoscopy (~06/22/23) Family History Mother No problems noted. Father No problems noted. Social History Housing: House Patient Tobacco Use Status: Never used Tobacco e-Cigarette/Vaping Use: Never Used service: No Current occupational status: employed Cognitive needs: No Hearing needs: No Vision needs: Yes (rx glasses) Questionnaire PHQ-9 Over the last 2 weeks, how often have you been bothered by any of the following problems? 1. Little interest or pleasure in doing things: not at all 2. Feeling down, depressed, or hopeless: not at all 3. Trouble falling or staying asleep, or sleeping too much: not at all 4. Feeling tired or having little energy: not at all 5. Poor appetite or overeating: not at all 6. Feeling bad about yourself - or that you are a failure or have let yourself or your family down: not at all 7. Trouble concentrating on things, such as reading the newspaper or watching television: not at all 8. Moving or speaking so slowly that other people could have noticed. Or the opposite - being so fidgety or restless that you have been moving around a lot more than usual: not at all 9. Thoughts that you would be better off or of hurting yourself in some way: not at all Total score: 0 Depression Screening Interpretation: Negative Depression Screening Done: Yes Source: Developed by Drs. Norberto Ivy, Chantel Saldivar, Mack Colón and colleagues, with an educational surinder from [employer]. Thrive Questionnaire Date Thrive assessed: 01/21/25 I am a: Patient Within the past 12 months, did the food you bought not last and you didn't have the money to get more?: Never true Within the past 12 months, did you worry whether your food would run out before you got money to buy more?: Never true Do you have trouble paying for medicines?: No Do you have trouble getting transportation to medical appointments?: No Do you have trouble paying your heating and electricity bill?: No Do you have trouble taking care of your child, family member or friend?: No Do you have trouble with day-to-day activities such as bathing, preparing meals, shopping, managing finances, etc.?: No Are you currently unemployed and looking for a job?: No Are you interested in more education?: No Currently or been in a relationship where the following occur: No concerns reported THRIVE Score: 0 AUDIT C Alcohol Use Questionnaire (AUDIT-C) 1. How often do you have a drink containing alcohol?: Never 3. How often do you have six or more drinks on one occasion?: Never Total Score: 0 BERNICE-7 AMB Questionnaire BERNICE-7 Date BERNICE - 7 assessed: 01/21/25 Feeling nervous, anxious, or on edge: 0 = Not at all Not being able to stop or control worryin = Not at all Worrying too much about different things: 0 = Not at all Trouble relaxin = Not at all Being so restless that it is hard to sit still: 0 = Not at all Becoming easily annoyed or irritable: 0 = Not at all Feeling afraid as if something awful might happen: 0 = Not at all Total BERNICE-7 score (0-4 normal; 5-9 mild; 10-14 moderate; 15-21 severe): 0 Source: Developed by Drs. Norberto Ivy, Chantel Saldivar, Mack Colón and colleagues, with an educational surinder from [employer]. Physical exam (Primary Care) Vital Signs: Last Vital Signs Temp 97.8 F 01/21/25 13:12 Pulse 76 01/21/25 13:12 BP 124/76 01/21/25 13:12 Pulse Ox 96 01/21/25 13:12 Oxygen Delivery Method Room Air 01/21/25 13:12 Care Plan Goal for BP management: BP in range BMI result Body Mass Index 38.5 BMI Assessment/Plan discussion: High (Wegovy prescribed) BMI High, discussed plan: lifestyle, weight reduction and dietary Tobacco/Smoking Status: Tobacco use Status Tobacco use date assessed 01/21/25 01/21/25 13:13 Patient Tobacco Use Status Never used Tobacco 01/21/25 13:13 e-Cigarette/Vaping Use Never Used 01/21/25 13:13 PHQ-9: PHQ-9 Score PHQ-9: Total score 0 01/21/25 13:36 Depression Screening Interpretation: Negative Thrive Assessment: Date of Thrive Assessment Date Thrive assessed 01/21/25 01/21/25 13:13 Currently or been in a relationship where the following occur: No concerns reported Const General: cooperative and healthy appearing Nutritional Appearance: well nourished Orientation/consciousness: patient oriented x3 Limitations: no limitations HENMT Head: Yes normal to inspection Eyes General: appearance normal, both eyes and all related structures Neck Neck: Yes normal visual inspection Chest Chest palpation & inspection: normal palpation of entire chest wall Resp Effort & Inspection: normal respiratory effort Cardio Other: ESM, 3/6 best heard over the aortic area Neuro General: patient oriented x3 Coding Level of Care Code New Pt Level 4 (42899) Complex EM visit Add On G2211 Diagnoses Aortic stenosis I35.0 HLD (hyperlipidemia) E78.5 Assessment & Plan Assessment & Plan (1) Aortic stenosis: Code(s): I35.0 - Nonrheumatic aortic (valve) stenosis Category: Medical Plan: Echo revd, cardiology consult requested. (2) HLD (hyperlipidemia): Code(s): E78.5 - Hyperlipidemia, unspecified Category: Medical Plan: BW ordered. Will call with results Orders: Orders Complete Blood Count no Diff Today E78.5 - Hyperlipidemia, unspecified Lipid Panel Today E78.5 - Hyperlipidemia, unspecified Thyroid Stimulating Hormone Today E78.5 - Hyperlipidemia, unspecified Basic Metabolic Panel Today E78.5 - Hyperlipidemia, unspecified Liver Panel Today E78.5 - Hyperlipidemia, unspecified UA and rflx microscopic Today E78.5 - Hyperlipidemia, unspecified C Reactive Protein Today E78.5 - Hyperlipidemia, unspecified Hemoglobin A1c Today I35.0 - Nonrheumatic aortic (valve) stenosis Referrals Cardiology Referral I35.0 - Nonrheumatic aortic (valve) stenosis Medications: New semaglutide (weight loss) (Eliane) administer weeks 1 through 4 of therapy 0.25 mg (0.5 mL) subcut QWEEK 6.5 mL 1RF 90 days
[2025-01-21 13:12] VITALS: BP 124/76; PULSE 76; TEMP 36.6; O2SAT 96; BMI 38.5
--- OUTSIDE RECORDS SUMMARY | 2025-01-21 13:42 | XMS_ITS | Patient Health Record ---
Author Organization [facility] Address [address] [place] [address] Care Team Providers Care Front Desk Manager Name Role Phone Alvarado Echevarria MD Primary Care Provider Dell Marrero Jr Unavailable Allergies No Known Allergies Reason For Referral No Information Medications Medication SIG (Take, Route, Frequency, Duration) Notes Start Date End Date Status Celecoxib 200 MG TAKE 1 CAPSULE [address] [facility] EVERY DAY Oral for 30 Active traMADol HCl 50 MG TAKE 1-2 TABLETS ANDER RY 6 HOURS NEEDED FOR PAIN. DO NOT DRIVE WHILE TAKING THIS MEDICATION Oral for 7 Active MiraLax (colon prep) 17 GM/SCOOP mixed with Gatorade or Crystal Light Orally begin at 5:00 p.m. the day before the procedure for 1 day 05/31/2023 Active Atorvastatin Calcium 10 MG Oral for 90 Active Immunizations Vaccine Route Administration Date Status Comme nts Influenza Unknown 05/31/2023 Refused Social History Tobacco Use: Social History Observation Description Date Details (start date - stop date) Never Smoker NA - NA Tobacco Use/Smoking Question Answer Notes Patient is a nonsmoker Alcohol Screen Question Answer Notes Did you have a drink containing alcohol in the p ast year? No Points 0 Interpretation Negative Problems Problem Type SNOMED Code ICD Code Onset Dates Problem Status W/U Status Risk Notes Problem 892225182 Colon cancer screening (Z12.11) Active confirmed Problem 509239829 Encounter for other preprocedural examination (Z01.818) Active confirmed Problem 469010507 Family history o f colon cancer (Z80.0) Active confirmed Problem 752695535 NSAID long-term use (Z79.1) Active confirmed Plan Of Treatment Future Test Test Name Order Date COLONOSCOPY 05/31/2023 Insurance Providers Payer Name Payer Address Payer Phone Subscriber Number Group Number Insured Name Patient Relationship to Insured Coverage Start Date Coverage End Date [facility] [address] [facility] [place] [phone] [id number] MARGARITA MOMIN Self - patient is the insured Medical (General) History Medical History History ICD Code Hyperlipidemia Osteoarthritis Discs disease/scoliosis Elevated BMI Surgical History Surgery Date(Month/Year) Colonoscopy negative per patient 2014 Knee surgeries, meniscus repairs linda al 2013
== END 2025-01-21 13:53 | disposition home or self-care (01) ==
LOC: HO.HMCHD 13:07
PROVIDERS: PCP Internal Medicine; Visit Provider Internal Medicine
DX: I35.0 Nonrheumatic aortic (valve) stenosis (principal); E78.5 Hyperlipidemia, unspecified

== ENCOUNTER → 2025-01-21 13:06 | Outpatient (BNVA) | payer OTHER, SELFPAY | PROVIDERS: PCP Internal Medicine; Visit Provider Internal Medicine ==

== ENCOUNTER 2025-01-31 07:07 | Outpatient (REF) | payer OTHER, SELFPAY ==
[2025-01-31 07:53] LABS: Hematocrit 39.8 % (42.0-52.0); Hemoglobin 13.4 g/dl (14.0-18.0); Mean Corpuscular HGB Conc 33.7 g/dl (31.0-36.0); Mean Corpuscular Hemoglobin 28.8 pg (27.0-33.0); Mean Corpuscular Volume 85.6 fL (80.0-98.0); Mean Platelet Volume 8.5 fL (9.4-12.4); Platelet Count 282 X10*3/uL (160-400); Red Blood Count 4.65 X10*6/uL (4.60-5.80); Red Cell Distribution Width 12.5 % (11.0-16.0); White Blood Count 6.1 X10*3/uL (4.8-10.8)
[2025-01-31 08:03] LABS: Estimated Average Glucose 105 mg/dL; Hemoglobin A1c % 5.3 % (<6.0); Total Hemoglobin (HGBA1C) 3557.7658 umol/L
[2025-01-31 08:34] LABS: Alanine Aminotransferase 12 U/L (0-40); Albumin Level 3.9 g/dL (3.5-5.0); Alkaline Phosphatase 85 U/L (39-117); Anion Gap 11 (12-20); Aspartate Amino Transferase 18 U/L (5-37); Bilirubin Direct 0.1 mg/dL (0.0-0.5); Bilirubin Total 0.4 mg/dL (0.0-1.0); Blood Urea Nitrogen 11 mg/dL (9-16); C Reactive Protein 0.58 mg/dL (< or = 0.50); Calcium 9.1 mg/dL (8.4-10.2); Carbon Dioxide 24 mmol/L (22-29); Chloride 110 mmol/L (96-108); Cholesterol 213 mg/dL (<200); Estimated Glomerular Filt Rate > 60; Glucose Random 94 mg/dL (60-115); HDL Cholesterol 34 mg/dL (>40); LDL Cholesterol Calculated 157 mg/dL (<100); Potassium 3.9 mmol/L (3.3-5.1); Sodium 141 mmol/L (135-145); Total Protein 6.6 g/dL (6.5-8.0); Triglycerides 114 mg/dL (<150)
[2025-01-31 08:43] LABS: Appearance Urine Clear; Color Urine Yellow; Glucose Urine UA Negative (Negative); Leukocyte Esterase Urine Negative (Negative); Nitrite Urine Negative (Negative); Specific Gravity - Urine >= 1.030 (1.005-1.025); Urine Blood Negative (Negative); Urine Ketones Trace mg/dL (Negative); Urine Protein Negative (Neg-Trace)
[2025-01-31 08:51] LABS: Thyroid Stimulating Hormone 1.72 uIU/mL (0.32-4.0)
== END 2025-01-31 07:08 | disposition home or self-care (01) ==
LOC: HO.LAB 07:07
PROVIDERS: PCP Internal Medicine; Visit Provider Internal Medicine
DX: E78.5 Hyperlipidemia, unspecified (principal); I35.0 Nonrheumatic aortic (valve) stenosis; Z13.1 Encounter for screening for diabetes mellitus
CPT/HCPCS: 36415; 80048; 80061; 80076; 81003; 83036; 84443; 85027; 86140

== ENCOUNTER 2025-02-18 14:38 | Outpatient (AMB) | payer OTHER, SELFPAY ==
[2025-02-18 14:50] VITALS: BP 124/68; PULSE 73; BMI 38.5
--- NOTE | 2025-02-18 14:50 | MHC.OFFVIS ---
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 He had an echocardiogram last year that showed aortic stenosis as well as pulmonic stenosis. Patient states that he was told to have a cardiac murmur many years ago. He used to just follow up with his PCP for this. He states he used to be very active till 3 years ago, as he was refraining for basketball. Then he had knee replacements and has not been to active lately. He also has some form of generalized inflammation of unknown etiology and he takes NSAIDs for the same. Otherwise, from the cardiac standpoint no known coronary disease or myocardial infarction or cardiomyopathy. He has got no active cardiac symptoms either. [facility] Medical History (Updated 02/18/25 @ 15:21 by Carter Nicole MD) Pulmonic stenosis Sleep apnea Aortic stenosis Scoliosis Osteoarthritis HLD (hyperlipidemia) Surgical History H/O knee surgery H/O colonoscopy (~06/22/23) Family History Mother No problems noted. Father No problems noted. Social History (Updated 02/18/25 @ 15:04 by Kirstin Maradiaga) Housing: House Alcohol intake: never Patient Tobacco Use Status: Never used Tobacco e-Cigarette/Vaping Use: Never Used service: No Current occupational status: employed Cognitive needs: No Hearing needs: No Vision needs: Yes (rx glasses) Review of Systems Const Reports headache(s) and Denies weakness ENT Denies dizziness and Reports headache(s) Card Denies chest pain, Denies chest pain with activity, Denies syncope, Denies rapid heart rate, Denies pedal edema, Denies edema, Denies leg edema, Denies lightheadedness, Denies palpitations, Denies dyspnea, Denies dyspnea on exertion and Denies orthopnea Resp Denies cough, Denies dyspnea and Denies dyspnea on exertion GI Denies hematochezia and Denies change in stool character Musc Denies abnormal gait, Denies muscle cramps, Denies muscle weakness, Denies numbness, Denies radiating pain into limb and Denies tingling Neuro Denies abnormal gait, Denies dizziness, Denies syncope, Reports headache(s), Denies numbness, Denies tingling and Denies weakness Endo Denies palpitations Physical Exam Vital Signs: Last Vital Signs Pulse 73 02/18/25 14:50 BP 124/68 02/18/25 14:50 BMI result Body Mass Index 38.5 Const General: comfortable and no acute distress Orientation/consciousness: patient oriented x3 HEENT Other: Unremarkable Head: Yes normal to inspection Neck Neck: Yes normal visual inspection Chest Chest palpation & inspection: normal inspection of the chest Resp Auscultation: clear to auscultation bilaterally Cardio Palpation: normal PMI Heart sounds: S1 normal heart sound present, S2 normal heart sound present, no gallops, Murmur heart sound present systolic II/, at the left sternal border and at the right sternal border and no rubs GI Palpation (GI): Soft to palpation Back/Spine/Pelvis Other: unremarkable Skin General skin exam: no rashes or lesions noted Neuro General: patient oriented x3 Extrem General: Yes normal to inspection Psych Mental Status: mental status grossly normal Office Procedures EKG Details: EKG with underlying sinus rhythm at 73/Min; no ischemic changes; [place] [id number], Complete Assessment & Plan Assessment & Plan (1) Non-rheumatic aortic stenosis: Code(s): I35.0 - Nonrheumatic aortic (valve) stenosis Category: Medical (2) Pulmonic stenosis: Code(s): I37.0 - Nonrheumatic pulmonary valve stenosis Category: Medical Plan In the echocardiogram from last year, LVEF is 65-70%. Mean gradient across aortic valve is 19 mm Hg. Calculated valve area of 1.7 sq cm. Aortic valve described to be trileaflet. Peak gradient across the pulmonic valve is 16 mm Hg. Overall, it seems that he has got mild aortic as well as pulmonic stenosis. Findings on echocardiogram discussed in detail. Ideally, needs repeat study to see if there is any progression of aortic stenosis. If it is indeed stable, then we can recheck echocardiogram every 2-3 years or so. Discussion Notes Reviewed with the patient the details of his heart murmur, explaining the mild abnormalities present in two valves and the implications of past medical history on current cardiovascular health. Emphasized the importance of regular monitoring with echocardiography to track any progression. Detailed the nonsurgical management for now and what changes in symptoms might necessitate further intervention. Discussed potential need for valve replacement in future if significant changes occur, clarifying types of procedures available should this become necessary, including less invasive options. Agreed on routine follow-up examinations and monitoring frequency. The patient consented to the plan, demonstrating understanding, and was reassured about current findings being non-threatening. Patient was informed and verbally consented to the use of an ambient scribe for clinic note documentation during this visit. Orders: Orders CA echo transthoracic complete Today I35.0 - Nonrheumatic aortic (valve) stenosis, I37.0 - Nonrheumatic pulmonary valve stenosis Patient Instructions: - Get an echocardiogram as planned. - Stay alert for new symptoms like breathing problems or reduced exercise capacity; let us know if they occur. - Check patient portal for the test schedule and results. - Follow up regularly, as we discussed. - Contact us with any concerns or questions. Coding Level of Care Code New Pt Level 4 (44594) Complex EM visit Add On G2211 Diagnoses Non-rheumatic aortic stenosis I35.0 Pulmonic stenosis I37.0 CPT Codes EKG - CPT: 41562-[id number], Complete ([id number])
--- OUTSIDE RECORDS SUMMARY | 2025-02-18 16:51 | XMS_ITS | Patient Health Record ---
Author Organization [facility] Address [address] [place] [address] Care Team Providers Care Care Team Coordinator Scheduler Name Role Phone Alvarado Echevarria MD Primary [...] Problem Status W/U Status Risk Notes Problem 040182707 Colon cancer screening (Z12.11) Active confirmed Problem 318149489 Encounter for other preprocedural examination (Z01.818) Active confirmed Problem 901798178 Family history o f colon cancer (Z80.0) Active confirmed Problem 042659804 NSAID long-term use (Z79.1) Active confirmed Plan Of Treatment Future Test Test Name Order Date COLONOSCOPY 05/31/2023 Insurance Providers Payer Name Payer Address Payer Phone Subscriber Number Group Number Insured Name Patient Relationship to Insured Coverage Start Date Coverage End Date [facility] [address] [place] [phone] [id number] MARGARITA MOMIN Self - patient is the insured Medical (General) History Medical History History ICD Code Hyperlipidemia Osteoarthritis Discs disease/scoliosis Elevated BMI Surgical History Surgery Date(Month/Year) Colonoscopy negative per patient 2014 Knee surgeries, meniscus repairs linda al 2013
== END 2025-02-18 15:56 | disposition home or self-care (01) ==
LOC: HO.HCS 14:39
PROVIDERS: PCP Internal Medicine; Visit Provider Internal Medicine
DX: I35.0 Nonrheumatic aortic (valve) stenosis (principal); I37.0 Nonrheumatic pulmonary valve stenosis
CPT/HCPCS: 93010; 99204; G2211

== ENCOUNTER → 2025-02-18 14:38 | Outpatient (BNVA) | payer OTHER, SELFPAY | PROVIDERS: PCP Internal Medicine; Visit Provider Internal Medicine | DX: I35.0 Nonrheumatic aortic (valve) stenosis (principal); I37.0 Nonrheumatic pulmonary valve stenosis | CPT/HCPCS: 93005 ==

== ENCOUNTER → 2025-03-26 13:45 | Outpatient (REF) | payer OTHER, SELFPAY ==
--- OUTSIDE RECORDS SUMMARY | 2025-03-26 13:47 | XMS_ITS | Patient Health Record ---
Author Organization [facility] Address [address] [place] [address] Care Team Providers Care Incident Response Engineer Name Role Phone Swathi (RETIRED) Alvarado AGRAWAL Primary Care Provide Dell Goody Jr Unavailable [phone] Allergies No Known Allergies Reason For Referral No Information Medications Medication SIG (Take, Route, Frequency, Duration) Notes Start Date End Date Status Celecoxib 200 MG TAKE 1 CAPSULE BY [facility] EVERY DAY Oral for 30 Active [...] Problem Status W/U Status Risk Notes Problem 934382658 Colon cancer screening (Z12.11) Active confirmed Problem 095777435 Encounter for other preprocedural examination (Z01.818) Active confirmed Problem 918929380 Family history o f colon cancer (Z80.0) Active confirmed Problem 379828779 NSAID long-term use (Z79.1) Active confirmed Plan Of Treatment Future Test Test Name Order Date COLONOSCOPY 05/31/2023 Insurance Providers Payer Name Payer Address Payer Phone Subscriber Number Group Number Insured Name Patient Relationship to Insured Coverage Start Date Coverage End Date [facility] [address] [facility] [place] [phone] [id number] MARGARITA MOMIN Self - patient is the insured Medical (General) History Medical History History ICD Code Hyperlipidemia Osteoarthritis Discs disease/scoliosis Elevated BMI Surgical History Surgery Date(Month/Year) Colonoscopy negative per patient 2014 Knee surgeries, meniscus repairs [place] al 2013
--- NOTE | 2025-03-26 13:48 | CA_ITS ---
Transthoracic Echocardiogram Patient (Last, First, Middle): Eric Wynn W Gender: Male Date of : 1965 Age: 59 Procedure Date: 03/26/2025 Procedure Type: Transthoracic Echocardiogram Location: OP Height: 180.34 cm Weight: 125.19 kg BSA: 2.42 m2 Heart Rate: bpm BP: 124 / 68 mmHg Claim Processor: LUCIA Referring MD: Carter Nicole MD Rolled Materials Worker: Peewee Lisa MD Symptoms: I35.0 - Nonrheumatic aortic (valve) stenosis Study Quality: Adequate with contrast ECG Rhythm: Sinus Conclusions: - 1. Normal LV ejection fraction with mild concentric LVH with severe asymmetric basal septal hypertrophy which is focal without obstructive physiology with impaired relaxation filling pattern 2. Moderate aortic stenosis 3. Mildly dilated ascending aorta at 3.8 cm 4. No gross pericardial effusion Findings Procedure Information Contrast agent, definity, is being given per protocol without apparent complications. Left Ventricle Normal left ventricular size and systolic function. There is mildly increased left ventricular wall thickness. The visually estimated ejection fraction is between 65-70%. Spectral Doppler is indicative of an impaired relaxation filling pattern. E/E prime ratio is between 8 and 15 consistent with indeterminate filling pressures. There is severe septal asymmetric hypertrophy. the basal septum has severe focal hypertrophy without any clear obstructive physiology Right Ventricle Normal right ventricular cavity size and systolic function. Atria The left atrium is normal in size. There is no evidence of interatrial shunt. The right atrium is normal in size. Aortic Valve There is moderate calcification of the aortic valve. There is mild thickening of the aortic valve. There is moderate aortic valve stenosis. The peak aortic velocity is 3.39 m/s with a calculated peak gradient of 46 mmHg. The mean gradient is 28 mmHg. The aortic valve area is 1.41 cm2. There is mild aortic valve regurgitation. Mitral Valve Normal mitral valve structure and function. There is trace mitral valve regurgitation. There is no mitral valve stenosis. Pulmonic Valve The pulmonic valve is likely normal. Tricuspid Valve Normal tricuspid valve structure. Tricuspid regurgitation envelope is inadequate for calculation of right ventricular systolic pressure. Normal right atrial pressure. Great Vessels The pulmonary artery was not well visualized. There is mild dilatation of the ascending aorta measuring 3.80 cm. Moderate plaque is seen in the sino tubular ridge. Venous The inferior vena cava is normal in size and collapses greater than 50% with inspiration. Pericardium/Pleural There is no evidence of pericardial effusion. Prior Study Comparison Changes noted compared to prior study dated: 01/11/2024. aortic stenosis is moderate Measurements 2D Linear Measurements IVSd: 1.83 0.6-0.9/0.6-1.0 cm LVIDd: 4.60 3.9-5.3/4.2-5.9 cm LVIDd Index: 1.90 2.4-3.2/2.2-3.1 cm/m2 LVIDs: 3.32 2.0-3.6 cm LVPWd: 1.26 0.7-1.1 cm LA Diam: 4.20 2.7-3.8/3.0-4.0 cm LAIDs Index: 1.74 1.5-2.3 cm/m2 LV Mass: 371.72 67-162/88-224 g LV Mass Index: 153.60 43-95/49-115 g/m2 LVOT Diam: 2.30 3.0+(-)1.3 cm 2D Systolic Function EF 4C: 65.00 >55% EF 2C: 70.50 >55% EF BiP: 67.60 >55% Mitral Valve MV Pk E: 1.00 MV PK A: 1.14 MV Decel Time: 298.00 E/A: 0.90 E'Lateral: 7.29 E'Medial: 7.07 E/E' Med: 14.10 E/E' Lat: 13.70 PHT: 87.00 MVA PHT: 2.53 Decel Dawson: 3.34 Aortic Valve AoV Pk Steve: 3.39 AoV Mn Steve: 2.50 AoV VTI: 0.83 AoV Pk Grad: 46.00 Aov Mn Grad: 28.00 BRIAN Cont.VTI: 1.41 AI Pk Steve: 4.34 AI Dawson: 1.79 LVOT LVOT Pk Steve: 1.17 LVOT Mn Steve: 0.85 LVOT VTI: 0.28 LVOT Pk Grad: 5.00 LVOT Mn Grad: 3.00 LVOT Diam: 2.30 LVOT Area: 4.15 Diastolic Function MV Pk E: 1.00 MV Pk A: 1.14 E/A: 0.90 E'Medial: 7.07 E/E' Med: 14.10 E' Laterial: 7.29 E/E' Lat: 13.70 Right Ventricle TAPSE (mm): 22.90 TVS' Steve: 8.70 Tricuspid Valve RA Press: 3.00 Great Vessels Aorta Sinus of Valsalva: 3.27 2.0-3.[address] Ridge: 2.51 1.7-3.4 cm Ao Asc: 3.80 2.1-3.4 cm Ao Arch: 3.30 Pulmonary Valve PV Pk Steve: 1.97 PV Min Steve: 1.15 Peak PV Grad: 16.00 PV Mn Grad: 7.00 Shunting QP:QS: 0.90 Updated in Other Vendor System with Status of Final Peewee Lisa MD electronically signed on 03/26/2025 4:55:53 PM with status of Final
== END ==
LOC: HO.CARD 13:45
PROVIDERS: Visit Provider Internal Medicine
DX: I35.0 Nonrheumatic aortic (valve) stenosis (principal); I37.0 Nonrheumatic pulmonary valve stenosis
CPT/HCPCS: 93306; Q9957

== ENCOUNTER → 2025-03-26 13:48 | Outpatient (BNV) | payer OTHER, SELFPAY | PROVIDERS: Visit Provider Internal Medicine Cardiovascular Disease | DX: I42.2 Other hypertrophic cardiomyopathy (principal); I35.2 Nonrheumatic aortic (valve) stenosis with insufficiency | CPT/HCPCS: 93306 ==

== ENCOUNTER 2025-06-08 14:39 | Outpatient (AMB) | payer OTHER, SELFPAY ==
[2025-06-08 15:05] VITALS: BP 120/60; PULSE 63; BMI 38.7
--- NOTE | 2025-06-08 15:05 | A.OFFVIS_ITS ---
Vital Signs 06/08/25 15:05 Height 5 ft 11 in Weight 277 lb 12.519 oz BMI 38.7 BP 120/60 Blood Pressure Location Lt brachial Position Sitting Pulse 63 Pulse Source Pulse Oximeter Intake Visit Reasons: 3+ mth f/up echo Allergies No Known Allergies Allergy (Verified 01/21/25 13:55) Medication List - Last Reconciled 06/08/25 by Carter Nicole MD atorvastatin 10 mg PO BEDTIME indomethacin 50 mg PO TID HPI Comments Details: Eric returns for follow-up. Recently seen in consultation regarding an abnormal echocardiogram. That had showed aortic stenosis as well as pulmonic stenosis. Patient states that he was told to have a cardiac murmur many years ago. He used to just follow up with his PCP for this. 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 Then he had knee replacements and has not been too active lately. He also has some form of generalized inflammation of unknown etiology and he takes NSAIDs for the same. Otherwise, from the cardiac standpoint no known coronary disease or myocardial infarction or cardiomyopathy. He has got no active cardiac symptoms either. He has completed a repeat echocardiogram. [facility] Medical History (Updated 02/18/25 @ 15:21 by Carter Nicole MD) Pulmonic stenosis Sleep apnea Aortic stenosis Scoliosis Osteoarthritis HLD (hyperlipidemia) Surgical History H/O knee surgery H/O colonoscopy (~06/22/23) Family History Mother No problems noted. Father No problems noted. Social History (Updated 02/18/25 @ 15:04 by Kirstin Maradiaga) Housing: House Alcohol intake: never Patient Tobacco Use Status: Never used Tobacco e-Cigarette/Vaping Use: Never Used service: No Current occupational status: employed Cognitive needs: No Hearing needs: No Vision needs: Yes (rx glasses) Review of Systems Const Denies weakness ENT Denies dizziness Card Denies chest pain, Denies chest pain with activity, Denies syncope, Denies rapid heart rate, Denies pedal edema, Denies edema, Denies leg edema, Denies lightheadedness, Denies palpitations, Denies dyspnea, Denies dyspnea on exertion and Denies orthopnea Resp Denies cough, Denies dyspnea and Denies dyspnea on exertion GI Denies hematochezia and Denies change in stool character Musc Denies abnormal gait, Denies muscle cramps, Denies muscle weakness, Denies numbness, Denies radiating pain into limb and Denies tingling Neuro Denies abnormal gait, Denies dizziness, Denies syncope, Denies numbness, Denies tingling and Denies weakness Endo Denies palpitations Physical Exam Vital Signs: Last Vital Signs Pulse 63 06/08/25 15:05 BP 120/60 06/08/25 15:05 BMI result Body Mass Index 38.7 Const General: comfortable and no acute distress Orientation/consciousness: patient oriented x3 HEENT Other: Unremarkable Head: Yes normal to inspection Neck Neck: Yes normal visual inspection Chest Chest palpation & inspection: normal inspection of the chest Resp Auscultation: clear to auscultation bilaterally Cardio Palpation: normal PMI Heart sounds: S1 normal heart sound present, S2 normal heart sound present, no gallops, no murmurs and no rubs GI Palpation (GI): Soft to palpation Back/Spine/Pelvis Other: unremarkable Skin General skin exam: no rashes or lesions noted Neuro General: patient oriented x3 Extrem General: Yes normal to inspection Psych Mental Status: mental status grossly normal Assessment & Plan Assessment & Plan (1) Non-rheumatic aortic stenosis: Code(s): I35.0 - Nonrheumatic aortic (valve) stenosis Category: Medical (2) Pulmonic stenosis: Code(s): I37.0 - Nonrheumatic pulmonary valve stenosis Category: Medical Plan In the recent echocardiogram, mean gradient 28 mm Hg with a calculated valve area of 1.4 cm2. Preserved LVEF at 70%. Severe septal hypertrophy. Overall, suspected moderate aortic stenosis. With regard to the pulmonic valve, reported normal but peak gradient is 60 mm Hg and hence mild pulmonic stenosis possible. Findings discussed with patient. Currently, he has got absolutely no symptoms related to cardiac. We will recheck an echocardiogram in one year to reassess the aortic stenosis. At the appropriate time, consider valve replacement. With regard to the pulmonic stenosis, suspect it is mild and more than likely it should not require any intervention in his lifetime. He will call us with any interim concerns. Discussion Notes During the consultation, I discussed with the patient the progression of his aortic valve stenosis and the importance of monitoring symptoms such as exertional dyspnea. I explained that surgical intervention might be necessary if the condition progresses to severe stenosis. We also reviewed his current physical activity level post-knee replacement, advising low-impact exercises and avoiding high-impact sports. Patient was informed and verbally consented to the use of an ambient scribe for clinic note documentation during this visit. Orders: Orders CA echo transthoracic complete 1 Year I35.0 - Nonrheumatic aortic (valve) stenosis, I37.0 - Nonrheumatic pulmonary valve stenosis Patient Instructions: - Monitor for symptoms like shortness of breath during physical activity. - Schedule annual echocardiograms to monitor aortic valve stenosis. - Engage in low-impact exercises such as walking and swimming. - Avoid high-impact activities to protect knee replacements. Coding Level of Care Code Est Pt Level 4 (38880) Complex EM visit Add On G2211 Diagnoses Non-rheumatic aortic stenosis I35.0 Pulmonic stenosis I37.0
--- OUTSIDE RECORDS SUMMARY | 2025-06-08 17:06 | XMS_ITS | Patient Health Record ---
Author Organization [facility] Address [address] [place] [address] Care Team Providers Care Photographers' Model Name Role Phone Swathi (RETIRED) Alvarado AGRAWAL Primary Care Provide Dell Godoy Jr Unavailable Allergies No Known Allergies Reason For Referral No Information Medications Medication SIG (Take, Route, Frequency, Duration) Notes Start Date End Date Status Celecoxib 200 MG TAKE 1 CAPSULE BY [facility] EVERY DAY Oral for 30 Active [...] Problem Status W/U Status Risk Notes Problem 597879158 Colon cancer screening (Z12.11) Active confirmed Problem 415325558 Encounter for other preprocedural examination (Z01.818) Active confirmed Problem [id number] Family history o f colon cancer (Z80.0) Active confirmed Problem [id number] NSAID long-term use (Z79.1) Active confirmed Plan Of Treatment Future Test Test Name Order Date COLONOSCOPY 05/31/2023 Insurance Providers Payer Name Payer Address Payer Phone Subscriber Number Group Number Insured Name Patient Relationship to Insured Coverage Start Date Coverage End Date [facility] [address] [facility] [place] [phone] [id number] MARGARITA MOMIN Self - patient is the insured Medical (General) History Medical History History ICD Code Hyperlipidemia Osteoarthritis Discs disease/scoliosis Elevated BMI Surgical History Surgery Date(Month/Year) Colonoscopy negative per patient 2014 Knee surgeries, meniscus repairs [place] al 2013
== END 2025-06-08 15:23 | disposition home or self-care (01) ==
LOC: HO.HCS 14:40
PROVIDERS: PCP Internal Medicine; Visit Provider Internal Medicine
DX: I35.0 Nonrheumatic aortic (valve) stenosis (principal); I37.0 Nonrheumatic pulmonary valve stenosis
CPT/HCPCS: 99214; G2211

== ENCOUNTER 2025-07-22 14:14 | Outpatient (AMB) | payer OTHER, SELFPAY ==
[2025-07-22 14:28] VITALS: BP 128/82; PULSE 75; TEMP 36.3; O2SAT 96; BMI 39.3
--- NOTE | 2025-07-22 14:28 | MHC.PC.OV ---
Vital Signs 07/22/25 14:28 Height 5 ft 11 in Weight 282 lb BMI 39.3 BP 128/82 Blood Pressure Location Lt brachial Position Sitting Pulse 75 Pulse Source Pulse Oximeter Temp 97.4 F Temp Source Temporal Artery Scan Pulse Oximetry (%) 96 Oxygen Delivery Method Room Air Intake Visit Reasons: 6 Month F/U Turnaround Planner Required: No Accompanied by: Self / Same As Patient Allergies No Known Allergies Allergy (Verified 07/22/25 14:28) Medication List - Last Reconciled 07/22/25 by Brandon Smith MD atorvastatin 10 mg PO BEDTIME indomethacin 50 mg PO TID Tobacco use date assessed: 07/22/25 Dental Screening Dental Screen Date: 07/22/25 Did you have a dental visit in the last 12 months?: Yes Did you have a dental problem in the last 6 months where you did not have access to dental care?: No HPI HPI Comments History of Present Illness Details History of Present Illness The patient is a 60-year-old male presenting for management of chronic conditions including joint pain, hyperlipidemia, weight gain, and sleep apnea. The patient has an inflammatory condition managed by his charge master analyst, described as joint inflammation with symptoms similar to rheumatoid arthritis, such as persistently swollen and tender wrists. His inflammatory markers are reportedly elevated, though rheumatoid factor was negative, suggesting seronegative rheumatoid arthritis. He was treated with prednisone for 3-4 months, which he stopped about six months ago, and now uses indomethacin 50 mg as needed. The patient also has a history of bilateral knee replacements for wear and tear, and reports his knees are currently swollen, with a recent episode where one knee swelled so badly he could not walk. The patient reports having gained weight, which he associates with his prior course of prednisone. He has a history of hyperlipidemia, with an LDL of 157 mg/dL and total cholesterol of 213 mg/dL in January of this year, and takes atorvastatin 10 mg. In the past, he successfully lost 80 pounds through diet and running. He carries a diagnosis of moderate aortic stenosis based on a prior echocardiogram showing a gradient of 28, with his technology assistant suggesting a possible valve replacement in the next 2-3 years if he becomes symptomatic. He also has a history of severe sleep apnea, which complicated anesthesia during his knee surgeries, and he was previously non-adherent with CPAP therapy due to discomfort. 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 - Indomethacin 50 mg as needed for joint inflammation. Diagnostic Results: - Labs (from January of the current year): - Bad cholesterol (LDL): 157 mg/dL - Total cholesterol: 213 mg/dL - A1c: 5.3% - TSH: 1.7 - CRP: Slightly elevated but improved from last year. - Echocardiogram (prior): - Findings consistent with moderate aortic stenosis, with a pressure gradient of 28. - Aortic valve opening reported as 1.4. 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 - Exercise: The patient has a history of running 3-4 days a week, but is now hesitant to run due to his heart condition and knee replacements. - Diet: He has previously lost 80 pounds by disciplining his diet. - Marital Status: He is . [facility] Medical History (Updated 07/22/25 @ 15:09 by Brandon Smith MD) Inflammatory polyarthritis AMISH (obstructive sleep apnea) Pulmonic stenosis Sleep apnea Aortic stenosis Scoliosis Osteoarthritis HLD (hyperlipidemia) Surgical History H/O knee surgery H/O colonoscopy (~06/22/23) Family History (Updated 07/22/25 @ 14:38 by Jessy Pandey MA) Mother No problems noted. Father No problems noted. Social History Housing: House Alcohol intake: never Patient Tobacco Use Status: Never used Tobacco e-Cigarette/Vaping Use: Never Used service: No Current occupational status: employed Cognitive needs: No Hearing needs: No Vision needs: Yes (rx glasses) Questionnaire PHQ-9 Over the last 2 weeks, how often have you been bothered by any of the following problems? 1. Little interest or pleasure in doing things: not at all 2. Feeling down, depressed, or hopeless: not at all 3. Trouble falling or staying asleep, or sleeping too much: not at all 4. Feeling tired or having little energy: not at all 5. Poor appetite or overeating: not at all 6. Feeling bad about yourself - or that you are a failure or have let yourself or your family down: not at all 7. Trouble concentrating on things, such as reading the newspaper or watching television: not at all 8. Moving or speaking so slowly that other people could have noticed. Or the opposite - being so fidgety or restless that you have been moving around a lot more than usual: not at all 9. Thoughts that you would be better off or of hurting yourself in some way: not at all Total score: 0 Depression Screening Interpretation: Negative Depression Screening Done: Yes Source: Developed by Drs. Norberto Ivy, Chantel Saldivar, Mack Colón and colleagues, with an educational surinder from [employer]. Thrive Questionnaire Date Thrive assessed: 07/22/25 I am a: Patient Within the past 12 months, did the food you bought not last and you didn't have the money to get more?: Never true Within the past 12 months, did you worry whether your food would run out before you got money to buy more?: Never true Do you have trouble paying for medicines?: No Do you have trouble getting transportation to medical appointments?: No Do you have trouble paying your heating and electricity bill?: No Do you have trouble taking care of your child, family member or friend?: No Do you have trouble with day-to-day activities such as bathing, preparing meals, shopping, managing finances, etc.?: No Are you currently unemployed and looking for a job?: No Are you interested in more education?: No THRIVE Score: 0 AUDIT C Alcohol Use Questionnaire (AUDIT-C) 1. How often do you have a drink containing alcohol?: Never 3. How often do you have six or more drinks on one occasion?: Never Total Score: 0 BERNICE-7 AMB Questionnaire BERNICE-7 Date BERNICE - 7 assessed: 07/22/25 Feeling nervous, anxious, or on edge: 0 = Not at all Not being able to stop or control worryin = Not at all Worrying too much about different things: 0 = Not at all Trouble relaxin = Not at all Being so restless that it is hard to sit still: 0 = Not at all Becoming easily annoyed or irritable: 0 = Not at all Feeling afraid as if something awful might happen: 0 = Not at all Total BERNICE-7 score (0-4 normal; 5-9 mild; 10-14 moderate; 15-21 severe): 0 Source: Developed by Drs. Norberto Ivy, Chantel Saldivar, Mack Colón and colleagues, with an educational surinder from [employer]. Review of Systems Narrative Review of Systems - Musculoskeletal: Reports his wrists are always swollen and tender. - Musculoskeletal: Reports his knees are swollen, with a recent episode where one knee swelled so badly that he could not walk. - Respiratory/Sleep: Reports severe sleep apnea. All systems reviewed & are unremarkable except as reviewed in HPI and above Physical exam (Primary Care) Vital Signs: Last Vital Signs Temp 97.4 F 07/22/25 14:28 Pulse 75 07/22/25 14:28 BP 128/82 07/22/25 14:28 Pulse Ox 96 07/22/25 14:28 Oxygen Delivery Method Room Air 07/22/25 14:28 BMI result Body Mass Index 39.3 Tobacco/Smoking Status: Tobacco use Status Tobacco use date assessed 07/22/25 07/22/25 14:30 Patient Tobacco Use Status Never used Tobacco 07/22/25 14:30 e-Cigarette/Vaping Use Never Used 07/22/25 14:30 PHQ-9: PHQ-9 Score PHQ-9: Total score 0 07/22/25 14:39 Depression Screening Interpretation: Negative Thrive Assessment: Date of Thrive Assessment Date Thrive assessed 07/22/25 07/22/25 14:30 Narrative Physical Exam General: +Alert and oriented, Well nourished, No acute distress. Eye: Pupils are equal, round and reactive to light, Intact accommodation, Extraocular movements are intact, Normal conjunctiva, Vision unchanged. HENT: Normocephalic, Atraumatic, Tympanic membranes are clear, Normal hearing, Oral mucosa is moist, No pharyngeal erythema, Ear canals patent. Respiratory: Lungs CTA bilaterally, No wheeze, Respirations are non-labored. Cardiovascular: Regular rate, Regular rhythm, S1 auscultated, S2 auscultated, Very light murmur, Good pulses equal in all extremities, Normal peripheral perfusion, No edema. Gastrointestinal: Soft, Non-tender, Non-distended, Normal bowel sounds, No organomegaly. Musculoskeletal: Normal range of motion, Normal strength, Tender wrists, Swollen knees, No deformity, Normal gait. Integumentary: Warm, Dry, [place], Intact. Neurologic: Alert, Oriented, Normal sensory, Normal motor function, No focal defects, Cranial Nerves II-XII are grossly intact, Normal deep tendon reflexes. Psychiatric: Cooperative, Appropriate mood & affect, Normal judgment. Coding Level of Care Code Est Pt Level 4 (63311) Complex EM visit Add On G2211 Diagnoses Inflammatory polyarthritis M06.4 Hyperlipidemia, unspecified hyperlipidemia type E78.5 Hyperlipidemia type: unspecified AMISH (obstructive sleep apnea) G47.33 Non-rheumatic aortic stenosis I35.0 Assessment & Plan Assessment & Plan (1) Inflammatory polyarthritis: Comment: - The patient's symptoms of chronic, bilateral wrist swelling and tenderness, along with elevated inflammatory markers, are suggestive of seronegative rheumatoid arthritis. - He is managed by a charge master analyst and uses indomethacin as needed. - He is encouraged to remain active within moderation and to follow up with his charge master analyst for ongoing management. Code(s): M06.4 - Inflammatory polyarthropathy Category: Medical (2) HLD (hyperlipidemia): Comment: - The patient has experienced weight gain, partly attributed to prior steroid use, and has elevated cholesterol despite being on atorvastatin. - The plan focuses on lifestyle modifications, including dietary changes and increasing physical activity like walking and swimming. - Weight loss medication was discussed but deferred pending a formal sleep apnea diagnosis and due to concerns about side effects. - Will continue atorvastatin 10 mg, and a refill was sent. Code(s): E78.5 - Hyperlipidemia, unspecified Category: Medical Qualifiers: Hyperlipidemia type: unspecified Qualified Code(s): E78.5 - Hyperlipidemia, unspecified (3) AMISH (obstructive sleep apnea): Comment: - Patient has a history of severe sleep apnea and was non-adherent to past CPAP therapy. - Plans include ordering a new sleep study to confirm the diagnosis and severity. - A formal diagnosis is necessary for considering advanced weight loss therapies like Zepbound, which may be covered by insurance for this indication. Code(s): G47.33 - Obstructive sleep apnea (adult) (pediatric) Category: Medical (4) Non-rheumatic aortic stenosis: Comment: - The patient is managed by a technology assistant for moderate aortic stenosis and is scheduled for a repeat echocardiogram next year. - He was counseled to exercise in moderation and to stop if he becomes symptomatic (e.g., severe shortness of breath). Code(s): I35.0 - Nonrheumatic aortic (valve) stenosis Category: Medical Plan: Health Maintenance: - Discussed weight management through dietary changes and increased physical activity, emphasizing benefits for joint health and cardiovascular status. - Recommended a new sleep study to confirm and manage sleep apnea. - Advised continued follow-up with rheumatology for joint pain and cardiology for aortic stenosis. - A follow-up visit is scheduled for 3 months. - Annual labs are planned for next January before his annual physical. Patient was informed and verbally consented to the use of an ambient scribe for clinic note documentation during this visit. Plan I discussed the management of the patient's multiple chronic conditions with him. For his inflammatory arthritis, I reinforced the importance of remaining active in moderation, despite his pain and previous knee replacements, and continuing to follow up with his charge master analyst. We discussed his weight gain and the central role of lifestyle changes, including diet modification and increased activity like walking and swimming. I explained that while weight loss medications like Zepbound could be an option for conditions like sleep apnea, we first need to obtain a new sleep study to get a formal diagnosis, which is necessary for insurance approval. Regarding his moderate aortic stenosis, I reiterated his technology assistant's advice to monitor for symptoms during exertion and to follow up for a repeat echo next year. I refilled his atorvastatin for hyperlipidemia and scheduled a follow-up visit in three months. Orders: Orders RT PSG in-lab sleep study Today G47.33 - Obstructive sleep apnea (adult) (pediatric) Medications: Refilled atorvastatin 10 mg PO BEDTIME 90 tabs 1RF Patient Instructions: - Continue taking Atorvastatin 10 mg daily for your high cholesterol. - You may take Indomethacin 50 mg as needed for your joint pain. - We are ordering a sleep study for you to check for sleep apnea. - Work on making healthy changes to your diet and increasing your physical activity, such as walking or swimming. - It is safe and important to stay active with your knee replacements; do things in moderation and listen to your body. - Continue to see your specialists: your charge master analyst for joint pain and your technology assistant for your heart valve condition. - Please schedule a follow-up appointment to see me in 3 months.
--- OUTSIDE RECORDS SUMMARY | 2025-07-23 02:44 | XMS_ITS | Patient Health Record ---
Author Organization [facility] Address [address] [place] [address] Care Team Providers Care Front Office Java Developer Name Role Phone Swathi (RETIRED) Alvarado AGRAWAL Primary Care Provide Dell Godoy Jr Unavailable Allergies No Known Allergies Reason For Referral No Information Medications Medication SIG (Take, Route, Frequency, Duration) Notes Start Date End Date Status Celecoxib 200 MG Capsule TAKE 1 CAPSULE BY MOUTH EVERY DAY Oral; Duration: 30 Active traMADol HCl 50 MG Tablet TAKE 1-2 TABLE TS EVERY 6 HOURS NEEDED FOR PAIN. DO NOT DRIVE WHILE TAKING THIS MEDICATION Oral; Duration: 7 Active MiraLax (colon prep) 17 GM/SCOOP Powder mixed with Gatorade or Crystal Light Orally begin at 5:00 p.m. the day before the procedure; Duration: 1 day 05/31/2023 Active Atorvastatin Calcium 10 MG Tablet Oral; Duration: 90 Active Immunizations Vaccine Route Administration Date Status Comme nts Influenza Unknown 05/31/2023 Refused Social History Tobacco Use: Social History Observation Description Date Details (start date - stop date) Never Smoker NA - NA Social History Drugs/Alcohol: Social Info Question Answer Notes Alcohol Screen Did you have a drink containing alcohol in the past year? 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 Problems Problem Type SNOMED Code ICD Code Onset Dates Problem Status W/U Status Risk Notes Problem Colon cancer screening (337538033) Colon cancer screening (Z12.11) Active confirmed Problem Pre-procedure evaluation check (442101770) Encounter for other preprocedural examination (Z01.818) Active confirmed Problem Family History of Cancer of Colon (Situation) (389269903) Family history of colon cancer (Z80.0) Active confirmed Problem snf current use of non-steroidal anti-inflammat ory drug (7692268716693 03) NSAID long-term use (Z79.1) Active confirmed Plan Of Treatment Future Test Test Name Order Date COLONOSCOPY 05/31/2023 Insurance Providers Payer Name Payer Address Payer Phone Subscriber Number Group Number Insured Name Patient Relationship to Insured Coverage Start Date Coverage End Date [facility] [address] [place] [phone] [id number] MARGARITA MOMIN Self - patient is the insured Medical (General) History Medical History History ICD Code Hyperlipidemia Osteoarthritis Discs disease/scoliosis Elevated BMI Surgical History Surgery Date(Month/Year) Colonoscopy negative per patient 2014 Knee surgeries, meniscus repairs linda al 2013
== END 2025-07-22 15:04 | disposition home or self-care (01) ==
LOC: HO.HMCHD 14:15
PROVIDERS: PCP Internal Medicine; Visit Provider Internal Medicine
DX: M06.4 Inflammatory polyarthropathy (principal); E78.5 Hyperlipidemia, unspecified; G47.33 Obstructive sleep apnea (adult) (pediatric); I35.0 Nonrheumatic aortic (valve) stenosis

== ENCOUNTER → 2025-08-31 20:30 | Outpatient (REF) | payer OTHER, SELFPAY ==
--- OUTSIDE RECORDS SUMMARY | 2025-08-31 22:44 | XMS_ITS | Patient Health Record ---
Author Organization [facility] Address [address] [place] [address] Care Team Providers Care Oracle Database Administrator Name Role Phone Swathi (RETIRED) Alvarado AGRAWAL [...] Status Risk Notes Problem Colon cancer screening (135392776) Colon cancer screening (Z12.11) Active confirmed Problem Pre-procedure evaluation check (127958421) Encounter for other preprocedural examination (Z01.818) Active confirmed Problem Family History of Cancer of Colon (Situation) (062410868) Family history of colon cancer (Z80.0) Active confirmed Problem prison current use of non-steroidal anti-inflammat ory drug (1274293603976 03) NSAID long-term use (Z79.1) Active confirmed Plan Of Treatment Future Test Test Name Order Date COLONOSCOPY 05/31/2023 Insurance Providers Payer Name Payer Address Payer Phone Subscriber Number Group Number Insured Name Patient Relationship to Insured Coverage Start Date Coverage End Date [facility] [address] [place] [phone] [id number] MARGARITA MOMIN Self - patient is the insured Medical (General) History Medical History History ICD Code Hyperlipidemia Osteoarthritis Discs disease/scoliosis Elevated BMI Surgical History Surgery Date(Month/Year) Colonoscopy negative per patient 2014 Knee surgeries, meniscus repairs linda al 2013
== END ==
LOC: HO.SL 20:30
PROVIDERS: PCP Student in an Organized Health Care Education/Training Program; Visit Provider Student in an Organized Health Care Education/Training Program
DX: G47.33 Obstructive sleep apnea (adult) (pediatric) (principal)
CPT/HCPCS: 95810

== ENCOUNTER → 2025-08-31 22:10 | Outpatient (BNV) | payer OTHER, SELFPAY | PROVIDERS: PCP Student in an Organized Health Care Education/Training Program; Visit Provider Psychiatry & Neurology Neurology | DX: G47.33 Obstructive sleep apnea (adult) (pediatric) (principal) | CPT/HCPCS: 95810 ==